=== PATIENT | male | born 1950 | race Caucasian/White ===

== ENCOUNTER → 2020-05-09 | Outpatient (CLI) | payer MEDICARE ==
[~2020-05-09] MED LIST: DUTA0.5C16 PO; TAMS-11 PO
[2020-05-09 10:15] LABS: BASOPHILS % (AUTO) 1 % (0-1); EOSINOPHILS % (AUTO) 2 % (1-7); LYMPHOCYTES % (AUTO) 21 % (22-44); MEAN CORPUSCULAR HEMOGLOBIN 32.2 pg (27.5-34.5); MEAN CORPUSCULAR HGB CONC 34.1 g/dL (33.2-36.2); MEAN PLATELET VOLUME 7.6 fL (7.4-10.4); MONOCYTES % (AUTO) 11 % (2-9); NEUTROPHILS % (AUTO) 67 % (42-75); PLATELET COUNT 281 x10^3/uL (130-400); RED BLOOD COUNT 4.43 x10^6/uL (4.38-5.82); RED CELL DISTRIBUTION WIDTH 14.4 % (9.4-14.8)
[2020-05-09 10:19] LABS: MD NO
[2020-05-09 10:26] LABS: INTERNATIONAL NORMALIZED RATIO 1.09 (0.93-1.1); PROTHROMBIN TIME 11.5 Seconds (9.6-11.5)
[2020-05-09 10:28] LABS: ANION GAP 4 mmol/L (5-15); CALCIUM 8.9 mg/dL (8.5-10.1); CHLORIDE 108 mmol/L (98-107); CREATININE 1.01 mg/dL (0.7-1.3)
[2020-05-09 10:50] LABS: MICROSCOPIC AUTO
== END | disposition home or self-care (01) ==
LOC: STAR 08:38
PROVIDERS: ATTEND Urology
DX: Z01.818 Encounter for other preprocedural examination (principal); N40.1 Benign prostatic hyperplasia with lower urinary tract symptoms; Z20.822 Contact with and (suspected) exposure to COVID-19
CPT/HCPCS: 80048; 81001; 85025; 85610; 85730; 87077; 87086; 87635; 93005

== ENCOUNTER 2020-05-15 10:11 | Day surgery (SDC) | payer MEDICARE ==
[~2020-05-15] VITALS: Ht 167.6 cm; Wt 59.0 kg
[2020-05-15] MEDS ORDERED: CHLORHEXIDINE 15 ML UDC ONE (10:29)
[2020-05-15] MEDS ORDERED: CHLORHEXIDINE 15 ML UDC MM ONE (10:30)
[2020-05-15] MEDS ORDERED: LACTATED RINGERS 1,000 ML IV SCH (10:30)
[2020-05-15] MEDS ORDERED: OPIUM/BELLADONNA SUPP.RECT 16.2-60 MG ONE (10:54)
[2020-05-15] MEDS ORDERED: LABETALOL 5MG/ML, 20ML IV PRN (11:00)
[2020-05-15] MEDS ORDERED: FENTANYL PF 100 MCG/2ML IV PRN (11:00)
[2020-05-15] MEDS ORDERED: hydrALAzine 20 MG/ML, 1ML IV PRN (11:00)
[2020-05-15] MEDS ORDERED: PROMETHAZINE 25 MG/ML, 1ML IVPush PRN (11:00)
[2020-05-15] MEDS ORDERED: HYDROmorphone 1 MG/ML, 1ML INJ IVPush PRN (11:00)
[2020-05-15] MEDS ORDERED: DIPHENHYDRAMINE 50 MG/ML, 1ML IVPush PRN (11:00)
[2020-05-15] MEDS ORDERED: HYDROcodone/APAP 7.5-325MG/15ML UDC PO PRN (11:00)
[2020-05-15] MEDS ORDERED: MEPERIDINE/PF 25MG/0.5ML IVPush PRN (11:00)
[2020-05-15] MEDS ORDERED: HALOPERIDOL 5 MG/ML IV PRN (11:00)
[2020-05-15] MEDS ORDERED: FENTANYL PF 250 MCG/5ML ONE (11:15)
[2020-05-15] MEDS ORDERED: NEOSTIGMINE 1 MG/ML, 10ML ONE (14:02)
[2020-05-15] MEDS ORDERED: DEXAMETHASONE 4 MG/ML, 1ML ONE (14:02)
[2020-05-15] MEDS ORDERED: SUCCINYLCHOLINE 20 MG/ML, 10ML ONE (14:02)
[2020-05-15] MEDS ORDERED: ROCURONIUM 10MG/ML,5ML ONE (14:02)
[2020-05-15] MEDS ORDERED: GLYCOPYRROLATE 0.2MG/1ML, 5ML ONE (14:02)
[2020-05-15] MEDS ORDERED: ONDANSETRON 2MG/ML, 2ML ONE (14:02)
[2020-05-15] MEDS ORDERED: SUGAMMADEX 200 MG/2 ML IVPush ONE (14:02)
[2020-05-15] MEDS ORDERED: CEFAZOLIN 1,000 MG ONE (14:02)
[2020-05-15] MEDS ORDERED: PROPOFOL 10 MG/ML, 20ML ONE (14:02)
== END 2020-05-15 16:45 | disposition home or self-care (01) ==
LOC: OUT 10:11
PROVIDERS: ATTEND Urology
DX: N40.1 Benign prostatic hyperplasia with lower urinary tract symptoms (principal); N32.3 Diverticulum of bladder; R33.8 Other retention of urine; Z79.899 Other long term (current) drug therapy; Z87.891 Personal history of nicotine dependence; Z88.8 Allergy status to other drugs, medicaments and biological substances
CPT/HCPCS: 52601; 88305; J0330; J0690; J1100; J2405; J2704; J3010; J7120; J2710